=== PATIENT | male | born 1960 | race African-American/Black ===

== ENCOUNTER 2020-02-14 10:36 | Emergency (ER) | payer OTHER ==
[~2020-02-14] VITALS: Ht 180.3 cm; Wt 100.0 kg
[~2020-02-14 10:36] MED LIST: AZIT250T PO; EZET10TA13 PO
[2020-02-14] MEDS ORDERED: HYDROCODONE/ACETAMINOPHEN 5/325MG TABLET PO ONE (11:15)
[2020-02-14 11:30] VITALS: BP 140/78
== END 2020-02-14 11:31 | disposition home or self-care (01) ==
LOC: ER 10:49
DX: K08.89 Other specified disorders of teeth and supporting structures (principal); I10 Essential (primary) hypertension
CPT/HCPCS: 99283

== ENCOUNTER 2020-07-14 20:12 | Emergency (ER) | payer OTHER ==
[~2020-07-14] VITALS: Ht 180.3 cm; Wt 106.0 kg
[2020-07-14] MEDS ORDERED: KETOROLAC 60MG/2ML VIAL IM ONE (21:15)
[2020-07-14 21:50] VITALS: BP 160/82
[2020-07-14] MEDS ORDERED: IBUP-2029 MT (22:02)
[2020-07-14] MEDS ORDERED: CYCL10TA7 MT (22:03)
== END 2020-07-14 22:43 | disposition home or self-care (01) ==
LOC: ER 20:12
DX: S30.0XXA Contusion of lower back and pelvis, initial encounter (principal); I10 Essential (primary) hypertension; E78.00 Pure hypercholesterolemia, unspecified; V43.52XA Car driver injured in collision with other type car in traffic accident, initial encounter; Y93.9 Activity, unspecified; Y92.488 Other paved roadways as the place of occurrence of the external cause
CPT/HCPCS: 72100; 96372; 99283; J1885

== ENCOUNTER 2021-06-12 14:41 | Inpatient (IN) | payer OTHER ==
[~2021-06-12] VITALS: Ht 180.3 cm; Wt 96.6 kg
[~2021-06-12 14:41] MED LIST changes: +CYCL10TA7 MT; +IBUP-2029 MT
[2021-06-12 16:12] LABS: CHLORIDE 95 mEq/L (98-107)
[2021-06-12 16:13] LABS: CLARITY URINE CLEAR (CLEAR); COLOR URINE YELLOW (YELLOW); KETONES URINE NEGATIVE (NEGATIVE); LEUKOCYTE ESTERASE URINE NEGATIVE (NEGATIVE); NITRITE URINE NEGATIVE (NEGATIVE); OCCULT BLOOD URINE 1+ (NEGATIVE); PH URINE 7.5 (4.5-8.0); PROTEIN URINE NEGATIVE (NEGATIVE); SPECIFIC GRAVITY URINE 1.009 (1.005-1.030); UROBILINOGEN URINE 0.2 E.U./dL (0.2-1.0)
[2021-06-12 16:15] LABS: ETHANOL BLOOD < 10 mg/dL
[2021-06-12 16:16] LABS: BASOPHILS % 0.4 % (0.0-2.0); EOSINOPHILS % 0.1 % (0.0-5.0); HEMATOCRIT. 42.9 % (42.0-52.0); HEMOGLOBIN. 15.4 g/dL (14.0-18.0); LYMPHOCYTES % 11.1 % (20.0-50.0); MEAN CORPUSCULAR HEMOGLOBIN 29.7 pg (28.0-32.0); MONOCYTES % 4.4 % (2.0-8.0); RED BLOOD CELL COUNT 5.17 mill/uL (4.7-6.1); RED CELL DISTRIBUTION WIDTH 13.8 % (11.6-14.6)
[2021-06-12 16:25] LABS: *BENZODIAZEPINES SCREEN URINE NEGATIVE (NEGATIVE); *COCAINE SCREEN URINE NEGATIVE (NEGATIVE); METHADONE URINE SCREEN NEGATIVE (NEGATIVE); OPIATES URINE SCREEN NEGATIVE (NEGATIVE)
[2021-06-12 16:26] LABS: *AMPHETAMINES SCREEN URINE NEGATIVE (NEGATIVE); CANNABINOID URINE SCREEN NEGATIVE (NEGATIVE); PHENCYCLIDINE URINE SCREEN NEGATIVE (NEGATIVE)
[2021-06-12 16:49] LABS: PLATELET 147 x1000/uL (130-400)
[2021-06-13 08:30] VITALS: BP 130/73
[2021-06-13] MEDS ORDERED: ONDANSETRON 4MG ODT PO PRN (09:45)
[2021-06-13 12:00] VITALS: BP 135/76
[2021-06-13] MEDS: ACETAMINOPHEN 325MG TABLET PO PRN (12:04)
[2021-06-13 16:00] VITALS: BP_SYST 123; BP_SYST 124; BP_SYST 129; BP_DIAS 63; BP_DIAS 67; BP_DIAS 73
[2021-06-13] MEDS ORDERED: DEXTROSE 50% WATER 50ML SYRINGE IV PRN (19:30)
[2021-06-13] MEDS ORDERED: ATOR40TA70 MT (19:54)
[2021-06-13] MEDS ORDERED: AMLO5TAB88 MT (19:54)
[2021-06-13] MEDS ORDERED: HYDR25TA MT (19:55)
[2021-06-13] MEDS ORDERED: METF-414 MT (19:58)
[2021-06-13] MEDS ORDERED: OMEP20CA14 MT (19:58)
[2021-06-13] MEDS ORDERED: ROSU20TA2 MT (19:58)
[2021-06-13] MEDS ORDERED: LISI20TA31 MT (19:58)
[2021-06-13 20:00] VITALS: BP 110/72
[2021-06-13] MEDS: BLOOD SUGAR DIAGNOSTIC STRIP TEST SCH (20:20)
[2021-06-13] MEDS: INSULIN LISPRO 100 UNITS/ML SUBCUT SCH (20:20)
[2021-06-13] MEDS ORDERED: ATORVASTATIN CALCIUM 40MG TABLET PO SCH (21:00)
[2021-06-13 22:23] LABS: *BARBITURATES SCREEN URINE NEGATIVE (NEGATIVE)
[2021-06-14] VITALS: BP 115/64
[2021-06-14 04:00] VITALS: BP_SYST 119; BP_SYST 129; BP_SYST 132; BP_DIAS 71; BP_DIAS 80; BP_DIAS 89
[2021-06-14] MEDS: INSULIN LISPRO 100 UNITS/ML SUBCUT SCH ×4 (07:30→20:15)
[2021-06-14] MEDS: BLOOD SUGAR DIAGNOSTIC STRIP TEST SCH ×4 (07:30→20:10)
[2021-06-14] MEDS ORDERED: METFORMIN HCL 500MG TABLET PO SCH (07:40)
[2021-06-14 08:00] VITALS: BP 124/66
[2021-06-14] MEDS: LISINOPRIL 20MG TABLET PO SCH (08:30)
[2021-06-14] MEDS: AMLODIPINE 5MG TABLET PO SCH (08:30)
[2021-06-14] MEDS: ACETAMINOPHEN 325MG TABLET PO PRN (08:31)
[2021-06-14] MEDS: METFORMIN HCL 500MG TABLET PO SCH ×2 (08:31→17:24)
[2021-06-14] MEDS: HYDROCHLOROTHIAZIDE 25MG TABLET PO SCH (08:31)
[2021-06-14] MEDS ORDERED: MEDICATION NOT ON FORMULARY EA (Rosuvastatin Calcium (Crestor) 1 TAB) MT SCH (09:00)
[2021-06-14] MEDS ORDERED: OMEPRAZOLE 20MG CAPSULE EXTENDED RELEASE PO SCH (09:00)
[2021-06-14] MEDS ORDERED: ATORVASTATIN CALCIUM 40MG TABLET PO SCH ×2 (09:00→21:00)
[2021-06-14] MEDS ORDERED: LACTULOSE 20G/30ML UDC PO PRN (11:00)
[2021-06-14 12:00] VITALS: BP 126/91
[2021-06-14] MEDS: DOCUSATE SODIUM 250MG CAPSULE PO SCH (13:55)
[2021-06-14 16:00] VITALS: BP_SYST 132; BP_SYST 133; BP_SYST 134; BP_DIAS 75; BP_DIAS 82; BP_DIAS 89
[2021-06-14 20:00] VITALS: BP 130/78
[2021-06-15] VITALS: BP 119/62
[2021-06-15 04:00] VITALS: BP_SYST 131; BP_SYST 139; BP_SYST 154; BP_DIAS 72; BP_DIAS 73; BP_DIAS 79
[2021-06-15] MEDS: BLOOD SUGAR DIAGNOSTIC STRIP TEST SCH ×2 (06:21→11:50)
[2021-06-15] MEDS: INSULIN LISPRO 100 UNITS/ML SUBCUT SCH ×2 (06:26→11:50)
[2021-06-15] MEDS ORDERED: OMEPRAZOLE 20MG CAPSULE EXTENDED RELEASE PO SCH (07:10)
[2021-06-15 08:00] VITALS: BP 123/71
[2021-06-15] MEDS: HYDROCHLOROTHIAZIDE 25MG TABLET PO SCH (08:32)
[2021-06-15] MEDS: AMLODIPINE 5MG TABLET PO SCH (08:32)
[2021-06-15] MEDS: DOCUSATE SODIUM 250MG CAPSULE PO SCH (08:32)
[2021-06-15] MEDS: METFORMIN HCL 500MG TABLET PO SCH (08:32)
[2021-06-15] MEDS: LISINOPRIL 20MG TABLET PO SCH (08:32)
[2021-06-15 11:54] VITALS: BP 145/56
== END 2021-06-15 16:13 | disposition home or self-care (01) | DRG 74 ==
LOC: ER 14:41 → MICUSO 20:19 → EDBEDREQTM 20:31 → EDBEDREQ 20:31 → 8WST 06-13 08:35
PROVIDERS: ADMIT Internal Medicine; ATTEND Internal Medicine
PROC: 5A09357 Assistance with Respiratory Ventilation, Less than 24 Consecutive Hours, Continuous Positive Airway Pressure (ICD-10-PCS; principal; 2021-06-13)
PROC: 5A09357 Assistance with Respiratory Ventilation, Less than 24 Consecutive Hours, Continuous Positive Airway Pressure (ICD-10-PCS; 2021-06-14)
DX: G90.8 Other disorders of autonomic nervous system (principal); E87.1 Hypo-osmolality and hyponatremia; I10 Essential (primary) hypertension; E78.00 Pure hypercholesterolemia, unspecified; E11.9 Type 2 diabetes mellitus without complications; E78.5 Hyperlipidemia, unspecified; E66.9 Obesity, unspecified; S09.90XA Unspecified injury of head, initial encounter; Z20.822 Contact with and (suspected) exposure to COVID-19; W18.39XA Other fall on same level, initial encounter; I45.10 Unspecified right bundle-branch block; G47.33 Obstructive sleep apnea (adult) (pediatric); E87.8 Other disorders of electrolyte and fluid balance, not elsewhere classified; Z85.46 Personal history of malignant neoplasm of prostate; Y93.89 Activity, other specified; Y92.89 Other specified places as the place of occurrence of the external cause; Y99.8 Other external cause status; Z79.2 Long term (current) use of antibiotics; Z79.899 Other long term (current) drug therapy
CPT/HCPCS: 36415; 71045; 74176; 80053; 80305; 80320; 81003; 82962; 83036; 83880; 84484; 85025; 87426; 93005; 93306; 93880; 93970; 94660; 99285; G0480

== ENCOUNTER 2021-08-28 16:48 | Emergency (ER) | payer OTHER ==
[~2021-08-28] VITALS: Ht 185.4 cm; Wt 95.0 kg
[~2021-08-28 16:48] MED LIST changes: +AMLO5TAB88 MT; +ATOR40TA70 MT; +HYDR25TA MT; +LISI20TA31 MT; +METF-414 MT; +OMEP20CA14 MT; +ROSU20TA2 MT
[2021-08-28 22:47] LABS: BASOPHILS % 0.7 % (0.0-2.0); EOSINOPHILS % 1.6 % (0.0-5.0); HEMATOCRIT. 43.4 % (42.0-52.0); HEMOGLOBIN. 14.8 g/dL (14.0-18.0); LYMPHOCYTES % 31.1 % (20.0-50.0); MEAN CORPUSCULAR HEMOGLOBIN 29.4 pg (28.0-32.0); MEAN CORPUSCULAR VOLUME 86.1 fL (80.0-94.0); MEAN PLATELET VOLUME 9.1 fl (7.4-10.4); MONOCYTES % 8.2 % (2.0-8.0); NEUTROPHILS % 58.4 % (40.0-76.0); PLATELET 167 x1000/uL (130-400); RED BLOOD CELL COUNT 5.05 mill/uL (4.7-6.1)
[2021-08-28 22:57] LABS: CHLORIDE 102 mEq/L (98-107)
[2021-08-28 23:58] LABS: CLARITY URINE CLEAR (CLEAR); COLOR URINE YELLOW (YELLOW); KETONES URINE NEGATIVE (NEGATIVE); LEUKOCYTE ESTERASE URINE NEGATIVE (NEGATIVE); NITRITE URINE NEGATIVE (NEGATIVE); OCCULT BLOOD URINE NEGATIVE (NEGATIVE); PH URINE 6.5 (4.5-8.0); PROTEIN URINE NEGATIVE (NEGATIVE); SPECIFIC GRAVITY URINE 1.014 (1.005-1.030); UROBILINOGEN URINE 0.2 E.U./dL (0.2-1.0)
[2021-08-29 00:22] LABS: *AMPHETAMINES SCREEN URINE NEGATIVE (NEGATIVE); *BARBITURATES SCREEN URINE NEGATIVE (NEGATIVE); *BENZODIAZEPINES SCREEN URINE NEGATIVE (NEGATIVE); *COCAINE SCREEN URINE NEGATIVE (NEGATIVE); CANNABINOID URINE SCREEN NEGATIVE (NEGATIVE); METHADONE URINE SCREEN NEGATIVE (NEGATIVE); OPIATES URINE SCREEN NEGATIVE (NEGATIVE); PHENCYCLIDINE URINE SCREEN NEGATIVE (NEGATIVE)
[2021-08-29 02:12] VITALS: BP 133/65
== END 2021-08-29 02:20 | disposition home or self-care (01) ==
LOC: ER 16:51
DX: R55 Syncope and collapse (principal); I10 Essential (primary) hypertension; E11.9 Type 2 diabetes mellitus without complications; E78.00 Pure hypercholesterolemia, unspecified; Z20.822 Contact with and (suspected) exposure to COVID-19; Z98.890 Other specified postprocedural states
CPT/HCPCS: 36415; 71045; 80053; 80305; 81003; 83880; 84484; 85025; 87426; 93005; 99285; C9803

== ENCOUNTER 2021-09-01 12:41 | Inpatient (IN) | payer OTHER ==
[~2021-09-01] VITALS: Ht 172.7 cm; Wt 99.0 kg
[2021-09-01 15:32] LABS: BASOPHILS % 0.8 % (0.0-2.0); HEMATOCRIT. 43.6 % (42.0-52.0); HEMOGLOBIN. 14.9 g/dL (14.0-18.0); LYMPHOCYTES % 25.5 % (20.0-50.0); MEAN CORPUSCULAR HEMOGLOBIN 29.3 pg (28.0-32.0); MEAN CORPUSCULAR VOLUME 85.5 fL (80.0-94.0); MEAN PLATELET VOLUME 9.7 fl (7.4-10.4); NEUTROPHILS % 65.7 % (40.0-76.0); PLATELET 171 x1000/uL (130-400); RED CELL DISTRIBUTION WIDTH 13.6 % (11.6-14.6)
[2021-09-01 16:20] LABS: CHLORIDE 99 mEq/L (98-107)
[2021-09-01 16:29] LABS: ETHANOL BLOOD < 10 mg/dL
[2021-09-01] MEDS ORDERED: ASPIRIN 81MG TABLET PO ONE (22:00)
[2021-09-02 02:45] VITALS: BP 136/76
[2021-09-02 08:00] VITALS: BP 133/68
[2021-09-02] MEDS: ASPIRIN 81MG TABLET PO SCH (08:58)
[2021-09-02] MEDS: AMLODIPINE 5MG TABLET PO SCH (08:59)
[2021-09-02] MEDS: ATORVASTATIN CALCIUM 40MG TABLET PO SCH (08:59)
[2021-09-02] MEDS: LISINOPRIL 20MG TABLET PO SCH (08:59)
[2021-09-02] MEDS: HYDROCHLOROTHIAZIDE 25MG TABLET PO SCH (08:59)
[2021-09-02] MEDS: ENOXAPARIN 40MG/0.4ML SYR SUBCUT SCH (08:59)
[2021-09-02 10:00] LABS: BASOPHILS % 0.8 % (0.0-2.0); EOSINOPHILS % 0.6 % (0.0-5.0); HEMATOCRIT. 45.5 % (42.0-52.0); HEMOGLOBIN. 15.4 g/dL (14.0-18.0); LYMPHOCYTES % 33.1 % (20.0-50.0); MEAN CORPUSCULAR HEMOGLOBIN 29.3 pg (28.0-32.0); MEAN CORPUSCULAR VOLUME 86.5 fL (80.0-94.0); MEAN PLATELET VOLUME 9.6 fl (7.4-10.4); MONOCYTES % 8.9 % (2.0-8.0); NEUTROPHILS % 56.6 % (40.0-76.0); PLATELET 153 x1000/uL (130-400); RED BLOOD CELL COUNT 5.26 mill/uL (4.7-6.1); RED CELL DISTRIBUTION WIDTH 13.9 % (11.6-14.6)
[2021-09-02 10:12] LABS: CHLORIDE 104 mEq/L (98-107)
[2021-09-02 10:21] LABS: HDL CHOLESTEROL 48 mg/dL (40-59); LDL CHOLESTEROL 90 mg/dL (5-100)
[2021-09-02 12:00] VITALS: BP 138/72
[2021-09-02 16:00] VITALS: BP 148/77
[2021-09-02 18:05] LABS: CLARITY URINE CLEAR (CLEAR); COLOR URINE YELLOW (YELLOW); KETONES URINE NEGATIVE (NEGATIVE); LEUKOCYTE ESTERASE URINE NEGATIVE (NEGATIVE); NITRITE URINE NEGATIVE (NEGATIVE); OCCULT BLOOD URINE NEGATIVE (NEGATIVE); PROTEIN URINE NEGATIVE (NEGATIVE); SPECIFIC GRAVITY URINE 1.012 (1.005-1.030); UROBILINOGEN URINE 0.2 E.U./dL (0.2-1.0)
[2021-09-02 18:17] LABS: *AMPHETAMINES SCREEN URINE NEGATIVE (NEGATIVE); *BARBITURATES SCREEN URINE NEGATIVE (NEGATIVE); *BENZODIAZEPINES SCREEN URINE NEGATIVE (NEGATIVE); *COCAINE SCREEN URINE NEGATIVE (NEGATIVE); CANNABINOID URINE SCREEN NEGATIVE (NEGATIVE); METHADONE URINE SCREEN NEGATIVE (NEGATIVE); OPIATES URINE SCREEN NEGATIVE (NEGATIVE); PHENCYCLIDINE URINE SCREEN NEGATIVE (NEGATIVE)
[2021-09-02] MEDS ORDERED: CLONIDINE 0.1MG TABLET PO PRN (19:15)
[2021-09-02] MEDS ORDERED: NALOXONE HCL 0.4MG/ML VIAL IV PRN (19:15)
[2021-09-02] MEDS ORDERED: ONDANSETRON HCL 4MG/2ML INJ IV PRN (19:15)
[2021-09-02] MEDS ORDERED: ACETAMINOPHEN 325MG TABLET PO PRN (19:15)
[2021-09-02] MEDS ORDERED: HYDROCODONE/ACETAMINOPHEN 5/325MG TABLET PO PRN (19:15)
[2021-09-02] MEDS ORDERED: DEXTROSE 50% WATER 50ML SYRINGE IV PRN (19:15)
[2021-09-02] MEDS ORDERED: MAGNESIUM/ALUMINUM HYDROXIDE/SIMETHICONE 30ML UDC PO PRN (19:15)
[2021-09-02 20:00] VITALS: BP 135/63
[2021-09-03] VITALS: BP 125/67
[2021-09-03 04:00] VITALS: BP 122/62
[2021-09-03 05:42] LABS: BASOPHILS % 0.8 % (0.0-2.0); EOSINOPHILS % 1.2 % (0.0-5.0); HEMATOCRIT. 44.6 % (42.0-52.0); HEMOGLOBIN. 15.3 g/dL (14.0-18.0); LYMPHOCYTES % 30.5 % (20.0-50.0); MEAN CORPUSCULAR HEMOGLOBIN 29.1 pg (28.0-32.0); MEAN CORPUSCULAR VOLUME 84.7 fL (80.0-94.0); MEAN PLATELET VOLUME 9.3 fl (7.4-10.4); MONOCYTES % 9.7 % (2.0-8.0); NEUTROPHILS % 57.8 % (40.0-76.0); PLATELET 173 x1000/uL (130-400); RED BLOOD CELL COUNT 5.27 mill/uL (4.7-6.1); RED CELL DISTRIBUTION WIDTH 13.8 % (11.6-14.6)
[2021-09-03 06:16] LABS: CHLORIDE 103 mEq/L (98-107)
[2021-09-03] MEDS: OMEPRAZOLE 20MG CAPSULE EXTENDED RELEASE PO SCH (06:25)
[2021-09-03 06:38] LABS: HDL CHOLESTEROL 46 mg/dL (40-59); LDL CHOLESTEROL 96 mg/dL (5-100); PHOSPHORUS 3.6 mg/dL (2.5-4.9); T4 FREE 0.97 ng/dL (0.76-1.46)
[2021-09-03 08:00] VITALS: BP 121/69
[2021-09-03] MEDS: ENOXAPARIN 40MG/0.4ML SYR SUBCUT SCH (09:03)
[2021-09-03] MEDS: ASPIRIN 81MG TABLET PO SCH (09:03)
[2021-09-03] MEDS: AMLODIPINE 5MG TABLET PO SCH (09:04)
[2021-09-03] MEDS: HYDROCHLOROTHIAZIDE 25MG TABLET PO SCH (09:04)
[2021-09-03] MEDS: ATORVASTATIN CALCIUM 40MG TABLET PO SCH (09:04)
[2021-09-03] MEDS: LISINOPRIL 20MG TABLET PO SCH (09:05)
[2021-09-03 12:00] VITALS: BP 126/67
[2021-09-03 16:00] VITALS: BP_SYST 119; BP_SYST 129; BP_SYST 136; BP_DIAS 73; BP_DIAS 74; BP_DIAS 77
[2021-09-03 20:00] VITALS: BP 122/73
[2021-09-03] MEDS ORDERED: ZOLPIDEM TARTRATE 5MG TABLET PO PRN (20:45)
[2021-09-04] VITALS: BP 98/50
[2021-09-04 04:00] VITALS: BP_SYST 111; BP_SYST 122; BP_SYST 137; BP_DIAS 53; BP_DIAS 55; BP_DIAS 72
[2021-09-04] MEDS ORDERED: DEXTROSE 50% WATER 50ML SYRINGE IV PRN (05:30)
[2021-09-04] MEDS ORDERED: BLOOD SUGAR DIAGNOSTIC STRIP TEST SCH (07:20)
[2021-09-04] MEDS ORDERED: INSULIN LISPRO 100 UNITS/ML SUBCUT SCH (07:50)
[2021-09-04 08:00] VITALS: BP 155/61
[2021-09-04 08:12] LABS: BASOPHILS % 0.9 % (0.0-2.0); EOSINOPHILS % 1.2 % (0.0-5.0); HEMATOCRIT. 45.3 % (42.0-52.0); HEMOGLOBIN. 15.5 g/dL (14.0-18.0); MEAN CORPUSCULAR HEMOGLOBIN 29.2 pg (28.0-32.0); MEAN CORPUSCULAR VOLUME 85.4 fL (80.0-94.0); MEAN PLATELET VOLUME 10.3 fl (7.4-10.4); MONOCYTES % 8.6 % (2.0-8.0); NEUTROPHILS % 60.3 % (40.0-76.0); PLATELET 150 x1000/uL (130-400); RED BLOOD CELL COUNT 5.31 mill/uL (4.7-6.1); RED CELL DISTRIBUTION WIDTH 13.9 % (11.6-14.6)
[2021-09-04 08:24] LABS: CHLORIDE 102 mEq/L (98-107)
[2021-09-04] MEDS: HYDROCHLOROTHIAZIDE 25MG TABLET PO SCH (08:36)
[2021-09-04] MEDS: LISINOPRIL 20MG TABLET PO SCH (08:36)
[2021-09-04] MEDS: OMEPRAZOLE 20MG CAPSULE EXTENDED RELEASE PO SCH (08:36)
[2021-09-04] MEDS: AMLODIPINE 5MG TABLET PO SCH (08:36)
[2021-09-04] MEDS: ASPIRIN 81MG TABLET PO SCH (08:36)
[2021-09-04] MEDS: ATORVASTATIN CALCIUM 40MG TABLET PO SCH (08:36)
[2021-09-04] MEDS: ENOXAPARIN 40MG/0.4ML SYR SUBCUT SCH (08:37)
[2021-09-04 10:20] VITALS: BP 147/69
== END 2021-09-04 11:25 | disposition home or self-care (01) | DRG 74 ==
LOC: ER 12:41 → 6WST 09-02 00:20 → ENRESERV 09-02 02:10
PROVIDERS: ADMIT Internal Medicine; ATTEND Internal Medicine
PROC: 5A09357 Assistance with Respiratory Ventilation, Less than 24 Consecutive Hours, Continuous Positive Airway Pressure (ICD-10-PCS; principal; 2021-09-02)
DX: G90.8 Other disorders of autonomic nervous system (principal); G47.33 Obstructive sleep apnea (adult) (pediatric); E78.5 Hyperlipidemia, unspecified; I10 Essential (primary) hypertension; R47.81 Slurred speech; R26.89 Other abnormalities of gait and mobility; Z20.822 Contact with and (suspected) exposure to COVID-19; E11.9 Type 2 diabetes mellitus without complications; E78.00 Pure hypercholesterolemia, unspecified; Z85.46 Personal history of malignant neoplasm of prostate; Z90.79 Acquired absence of other genital organ(s); Z79.2 Long term (current) use of antibiotics; Z79.84 Long term (current) use of oral hypoglycemic drugs; Z79.899 Other long term (current) drug therapy
CPT/HCPCS: 36415; 70551; 71045; 80048; 80053; 80061; 80076; 80305; 80320; 81003; 82533; 82962; 83036; 83735; 84100; 84439; 84443; 84481; 84484; 85025; 87426; 93005; 94660; 99285; J1650; G0480

== ENCOUNTER 2022-09-02 05:25 | Emergency (ER) | payer OTHER ==
[~2022-09-02] VITALS: Ht 180.3 cm; Wt 100.0 kg
[~2022-09-02 05:25] MED LIST changes: -AZIT250T PO; +CYCL10TA21 MT; -CYCL10TA7 MT; -EZET10TA13 PO; -METF-414 MT; -ROSU20TA2 MT
[2022-09-02 05:32] VITALS: BP 160/62
[2022-09-02 06:19] LABS: CLARITY URINE CLOUDY (CLEAR); COLOR URINE RED (YELLOW); KETONES URINE NEGATIVE (NEGATIVE); LEUKOCYTE ESTERASE URINE 2+ (NEGATIVE); NITRITE URINE POSITIVE (NEGATIVE); OCCULT BLOOD URINE 3+ (NEGATIVE); PROTEIN URINE 3+ (NEGATIVE); SPECIFIC GRAVITY URINE 1.012 (1.005-1.030); UROBILINOGEN URINE 0.2 E.U./dL (0.2-1.0)
[2022-09-02 06:55] LABS: BASOPHILS % 0.9 % (0.0-2.0); EOSINOPHILS % 1.7 % (0.0-5.0); HEMATOCRIT. 40.6 % (42.0-52.0); HEMOGLOBIN. 14.1 g/dL (14.0-18.0); LYMPHOCYTES % 25.5 % (20.0-50.0); MEAN PLATELET VOLUME 10.4 fl (7.4-10.4); MONOCYTES % 8.7 % (2.0-8.0); NEUTROPHILS % 63.2 % (40.0-76.0); PLATELET 152 x1000/uL (130-400); RED BLOOD CELL COUNT 4.72 mill/uL (4.7-6.1); RED CELL DISTRIBUTION WIDTH 13.4 % (11.6-14.6)
[2022-09-02 07:01] LABS: CHLORIDE 105 mEq/L (98-107)
[2022-09-02] MEDS ORDERED: TAMS-11 MT (08:01)
[2022-09-02] MEDS ORDERED: CEPH500C2 MT (08:01)
== END 2022-09-02 08:26 | disposition home or self-care (01) ==
LOC: ER 05:25
DX: R33.9 Retention of urine, unspecified (principal); R31.9 Hematuria, unspecified; N30.90 Cystitis, unspecified without hematuria; E11.9 Type 2 diabetes mellitus without complications; E78.00 Pure hypercholesterolemia, unspecified; I10 Essential (primary) hypertension; Z79.899 Other long term (current) drug therapy
CPT/HCPCS: 36415; 80048; 81003; 85025; 99283